=== PATIENT | male | born 2000 | race American Indian/Alaskan Native ===

== ENCOUNTER 2018-07-27 08:57 | Emergency (ER) | payer MEDICAID ==
[2018-07-27 08:57] VITALS: BMI 24.3
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
[2018-07-27 09:45] VITALS: O2SAT 100
[2018-07-27] MEDS ORDERED: Lidocaine 5% Patch TD SCH ×2 (10:00→11:45)
--- NOTE | 2018-07-27 11:11 | RAD ---
Date of service: 07/27/2018 HISTORY: back pain COMPARISON: No prior. FINDINGS: BONES: Alignment maintained. No fracture or spondylolisthesis. DISC SPACES: Normal. SOFT TISSUES: Normal. OTHER FINDINGS: None. IMPRESSION: Normal radiographs of the thoracic spine.
--- NOTE | 2018-07-27 11:11 | RAD ---
Date of service: 07/27/2018 PROCEDURE: Cervical Spine Radiographs. HISTORY: Pain. COMPARISON: None available. FINDINGS: BONES: Alignment maintained. No fracture. Dens Intact. Mild straightening of cervical curvature. DISC SPACES: Normal. No definite right neural foraminal stenosis. Left neural foramina are not well captured and not evaluated adequately. SOFT TISSUES: Normal. No prevertebral soft tissue swelling. OTHER FINDINGS: None. IMPRESSION: Mild straightening of cervical curvature. No fracture or spondylolisthesis appreciable. No right bony neural foraminal stenosis. Left neural foramina not evaluated due to poor angulation. Repeat radiography or cross-sectional imaging can be performed for added characterization if clinically warranted.
[2018-07-27 11:15] VITALS: PULSE 55; RESP 16
[2018-07-27 11:40] VITALS: BP 106/48; TEMP 98.3
== END 2018-07-27 11:51 | disposition home or self-care (01) ==
LOC: ED 08:57
DX: M54.6 Pain in thoracic spine (principal)
CPT/HCPCS: 72050; 72070; 96372; 96374; 99284; J1885